=== PATIENT | male | born 1940 | race Caucasian/White ===

== ENCOUNTER 2016-04-18 14:12 | Emergency (ER) | payer MEDICARE, BC ==
--- NOTE | ~2016-04-18 | CN ---
Consultation Report [facility] [address] [place]. [address] NAME: KURTIS RENAE JR : 44 STATUS : DEP [facility]#: [id number] AGE: 75 ADM/REG DATE : 04/18/16 MR#: [id number] REPORT SERV DATE: 04/19/16 DICTATED BY: DATE: REPORT STATUS : Draft TRANSCRIBED BY: MODL DATE: 04/18/16 CONSULTATION REPORT DATE OF CONSULTATION: 04/18/2016 CHIEF COMPLAINT/REASON FOR CONSULT: Palpitations and history of supraventricular tachycardia. HISTORY OF PRESENT ILLNESS: Mr. Renae is a very pleasant 75-year-old gentleman who is well known to my colleague, Dr. Feldman. He has a known history of supraventricular tachycardia that started at the age of 15, was quiescent largely during at the adulthood and has increased later in life. He has documented paroxysmal supraventricular tachycardia on Holter monitoring performed in 2008. The patient unfortunately has had a lot of stress lately and then of his father. He has had increased palpitations. He stated that he was largely in his normal state of health. He had a large meal of [place] food. He went to bed and then woke up at night with his heart racing again, he thought it was up to 160 beats per minute. He also had a reflux sensation in his neck. He denies any chest pain or shortness of breath. He states that he had increasing fatigue. He contacted [facility] today after his episode and he was directed to the emergency department for additional evaluation. The patient has had no further palpitations since this morning. He denies chest pain or shortness of breath. PAST MEDICAL HISTORY: 1. Known history of supraventricular tachycardia, documented on Holter monitoring since 2008. 2. Hypertension. 3. Hyperlipidemia. 4. Mild aortic stenosis, documented on echocardiogram performed on 11/20/2015. SOCIAL HISTORY: The patient is . He does not smoke, drink, or use extracurricular drugs. He is retired. He has increased stress lately over his father's . FAMILY HISTORY: Noncontributory. ALLERGIES: NO KNOWN DRUG ALLERGIES. CURRENT MEDICATIONS: 1. Aspirin 81 mg p.o. daily. 2. Calcium. 3. Co Q10. 4. Crestor 10 mg p.o. daily. 5. Diltiazem 240 mg p.o. daily. 6. Vitamin D. 7. Vitamin C. Consultation Report [facility] [id number] [place]. [address] NAME: KURTIS RENAE JR : 44 STATUS : [facility]#: [id number] AGE: 75 ADM/REG DATE : 04/18/16 MR#: [id number] REPORT SERV DATE: 04/19/16 DICTATED BY: DATE: REPORT STATUS : Draft TRANSCRIBED BY: MODL DATE: 04/18/16 REVIEW OF SYSTEMS: All systems were reviewed and are negative except for as dictated in the HPI. PHYSICAL EXAMINATION: VITAL SIGNS: Blood pressure on admission 167/99, pulse 81, respirations 16, and oxygen saturation 97% on room air. GENERAL: The patient is a 75-year-old gentleman. He is in no acute distress. NECK: No jugular venous distention. No carotid bruits. HEART: Regular rate and rhythm. There is a 3/6 systolic murmur that radiates to the carotids bilaterally. I could not appreciate rubs or gallops. LUNGS: Clear to auscultation in all [place]. ABDOMEN: Soft and nontender. I could not appreciate any renal bruits or hepatosplenomegaly. EXTREMITIES: Warm and well perfused. There is no pitting edema present. MUSCULOSKELETAL: No clubbing or cyanosis of the digits. NEUROLOGIC: I could not appreciate any focal neurologic deficits. REVIEW OF TEST RECORDS AND MEDICAL DECISION MAKING: Sodium 142, potassium 4.4, BUN 20, creatinine 1.06, and magnesium is 2.3. Hemoglobin 15.9, hematocrit of 43.8, platelet count is 269. INR is 1.1. Troponin in 2016 was 0.04, it is ranged from 0.06 to 0.07 during this hospital stay. A chest x-ray performed in the emergency department demonstrated no evidence of acute cardiopulmonary disease. An EKG performed in the emergency department demonstrated normal sinus rhythm with PACs. There was no evidence of ischemic ST-T segment changes. IMPRESSION, REPORT, AND PLAN: 1. Supraventricular tachycardia with established diagnosis. 2. Mildly abnormal cardiac biomarker without chest pain, shortness of breath, likely secondary to above. 3. Hypertension. 4. Hyperlipidemia. 5. Bereavement stress. RECOMMENDATIONS: 1. I have recommended that the patient increase his diltiazem to 360 mg p.o. daily and I have given him a prescription for an additional 120 mg to be taken with his existing 240. 2. He will be discharged with a Holter monitor from the emergency department. 3. I will arrange to repeat echocardiogram prior to his visit with Dr. Feldman. 4. I advised that if he develops any chest pain, shortness of breath, syncope, or presyncopal episodes, he should present back to the emergency department for additional evaluation. Otherwise, he has scheduled followup with Dr. Feldman on 05/07/2016 at 10:30 a.m. It has been my pleasure to participate in the care of Mr. Renae. Consultation Report [facility] [place] [id number] [facility] [place]. [address] NAME: KURTIS RENAE JR : 44 STATUS : DEP [facility]#: [id number] AGE: 75 ADM/REG DATE : 04/18/16 MR#: [id number] REPORT SERV DATE: 04/19/16 DICTATED BY: DATE: REPORT STATUS : Draft TRANSCRIBED BY: JACEY DATE: 04/18/16 [facility]/JACEY Rima See M.D. / [id number] CC: Brigid Palacio M.D.
[2016-04-18 12:48] LABS: BASOPHILS 0.4 %; BASOPHILS ABSOLUTE 0.03 10/3/uL (0.0-0.16); EOSINOPHILS ABSOLUTE 0.07 10/3/uL (0.0-0.53); HEMATOCRIT 43.8 % (40.0-51.0); HEMOGLOBIN 15.4 g/dL (13.6-17.8); IMMATURE GRANULOCYTES 0.1 %; IMMATURE GRANULOCYTES ABSOLUTE 0.01 10/3/uL (0.0-0.11); LYMPHOCYTES 13.4 %; LYMPHOCYTES ABSOLUTE 0.97 10/3/uL (0.67-4.30); MEAN CORPUS HGB CONC 35.2 g/dL (32.0-36.0); MEAN CORPUSCULAR HEMOGLOB 31.5 pg (26.0-34.0); MEAN CORPUSCULAR VOLUME 89.6 fL (80-100); MEAN PLATELET VOLUME 10.3 fL (9.2-13.0); MONOCYTES 8.6 %; MONOCYTES ABSOLUTE 0.62 10/3/uL (0.21-1.20); NEUTROPHILS 76.5 %; NEUTROPHILS ABSOLUTE 5.54 10/3/uL (2.02-8.40); PLATELET COUNT 269 10/3/uL (150-400); RBC DISTRIBUTION WIDTH 13.7 % (12.0-16.0); RED CELL COUNT 4.89 10/6/uL (4.7-6.1); WHITE BLOOD CELLS 7.2 10/3/uL (4.5-10.5)
[2016-04-18 12:50] LABS: ER CBC TAT 0 Hrs 08 Mins; MANUAL DIFF NO %
[2016-04-18 12:57] LABS: INTERNATIONAL NORMAL RATI 1.1 UNITS (-); PARTIAL THROMBO TIME 37.2 SEC (22.5-37.2); PROTIME (NOT ORD) 14.2 SEC (12.0-14.5)
[2016-04-18 13:03] LABS: BUN (BLOOD UREA NITROGEN) 20 MG/DL (6-23); CALCIUM, SERUM 9.2 MG/DL (8.5-10.4); CHEST PAIN PROFILE TAT 0 Hrs 23 Mins; CHLORIDE, SERUM 106 MMOL/L (96-112); CO2 (CARBON DIOXIDE) 30 MMOL/L (24-34); CREATININE 1.06 MG/DL (0.70-1.30); GFR AFRICAN AMERICAN 80 ML/MIN (>=60); GFR NON AFRICAN AMERICAN 69 ML/MIN (>=60); GLUCOSE, SERUM 90 MG/DL (60-99); POTASSIUM, SERUM 4.4 MMOL/L (3.5-5.3); SODIUM, SERUM 142 MMOL/L (135-148); TROPONIN I 0.06 NG/ML (<0.05)
[~2016-04-18 14:12] MED LIST: CRESTOR10 PO; DILT-XR240 MG PO
== END 2016-04-18 17:50 | disposition home or self-care (01) ==
LOC: ER 14:12
PROVIDERS: Emergency Medicine
DX: R00.0 Tachycardia, unspecified (principal); I50.9 Heart failure, unspecified; Z79.899 Other long term (current) drug therapy
CPT/HCPCS: 71020; 80048; 83735; 84484; 85025; 85610; 85730; 93005; 93225; 99285